=== PATIENT | male | born 1965 | race Caucasian/White ===

== ENCOUNTER 2016-07-18 07:57 | Emergency (ER) | payer BC ==
[~2016-07-18] VITALS: Ht 167.6 cm; Wt 88.5 kg
[2016-07-18 07:59] VITALS: BP 176/102; PULSE 90; RESP 20; TEMP 98; O2SAT 96
[2016-07-18 08:28] LABS: BLOOD, URINE NEG (NEG); COMMENT (UR) CULT NOT INDICATED; CULTURE IF INDICATED CULT NOT INDICATED; GLUCOSE,URINE NEG (NEG); HYALINE CAST, URINE 1 /lpf (RARE); KETONE, URINE NEG (NEG); MUCUS URINE FEW /lpf (OCC); NITRITE,URINE NEG (NEG); URINE COLOR YELLOW (YELLW/STRAW)
--- NOTE | 2016-07-18 10:41 | PD ---
HPI Chief Complaint: Complaint Time Seen by Provider: 10:37 Travel History International Travel<30 days: No Contact w/Intl Traveler<30days: No Traveled to known affect area: No History of Present Illness HPI 51-year-old male with no significant past medical issues, presents to the ER with 4 days history of lower abdominal pains, bloating, diarrhea, and pain with urination. He denies any fevers, nausea, vomiting, or any other symptoms. Pain is currently about a 4-5 out of 10. Modifying Factors: None Associated Signs & Symptoms: Lower abdominal pains, bloating, diarrhea, pain with urinating Risk Factors: None PFSH Past Medical History Diminished Hearing: No Hypertension: Yes Immunizations Current: No Tetanus Vaccination: Unknown Influenza Vaccination: No Past Surgical History Surgical History: No Previous Surgery Social History Alcohol Use: Yes (6-8 a day) Tobacco Use: Yes ("a lot") Substance Use: Yes (marijuana) Allergies-Medications (Allergen,Severity, Reaction): Coded Allergies: Tetanus Toxoid (Verified Allergy, Severe, Anaphylaxis, 07/18/16) Reported Meds & Prescriptions Reported Meds & Active Scripts Active No Active Prescriptions or Reported Medications Review of Systems Except as stated in HPI: all other systems reviewed are Neg Physical Exam Narrative GENERAL: Well-nourished, well-developed middle age male patient in no acute distress. SKIN: Warm and dry. HEAD: Normocephalic. EYES: No scleral icterus. No injection or drainage. NECK: Supple, trachea midline. CARDIOVASCULAR: Regular rate and rhythm without murmurs, gallops, or rubs. RESPIRATORY: Breath sounds equal bilaterally. No accessory muscle use. GASTROINTESTINAL: Abdomen soft, mild lower abdominal tenderness without guarding or rebound, nondistended. MUSCULOSKELETAL: No cyanosis, or edema. BACK: Nontender without obvious deformity. No CVA tenderness. Data Data Last Documented VS Vital Signs Date Time Temp Pulse Resp B/P Pulse Ox O2 Delivery O2 Flow Rate FiO2 07/18/16 07:59 98.0 90 20 176/102 96 Room Air Orders Urinalysis - C+S If Indicated (07/18/16 08:14) Complete Blood Count With Diff (07/18/16 10:38) Comprehensive Metabolic Panel (07/18/16 10:38) Ct Abd/Pel W Iv Contrast(Rout) (07/18/16 10:38) Iv Access Insert/Monitor (07/18/16 10:38) Ecg Monitoring (07/18/16 10:38) Oximetry (07/18/16 10:38) Sodium Chloride 0.9% Flush (Ns Flush) (07/18/16 10:45) Iohexol 350 Inj (Omnipaque 350 Inj) (07/18/16 12:12) Labs Laboratory Tests Test 07/18/16 07/18/16 08:18 11:00 Urine Color YELLOW Urine Turbidity CLEAR Urine pH 5.0 Urine Specific [place] 1.020 Urine Protein TRACE mg/dL Urine Glucose (UA) NEG mg/dL Urine Ketones NEG mg/dL Urine Occult Blood NEG Urine Nitrite NEG Urine Bilirubin NEG Urine Urobilinogen LESS THAN 2.0 MG/DL Urine Leukocyte Esterase TRACE Urine RBC 1 /hpf Urine WBC 1 /hpf Urine Hyaline Casts 1 /lpf Urine Mucus FEW /lpf Microscopic Urinalysis Comment CULT NOT INDICATED White Blood Count 11.5 TH/MM3 Red Blood Count 5.08 MIL/MM3 Hemoglobin 16.5 GM/DL Hematocrit 47.0 % Mean Corpuscular Volume 92.6 FL Mean Corpuscular Hemoglobin 32.5 PG Mean Corpuscular Hemoglobin 35.1 % Concent Red Cell Distribution Width 13.6 % Platelet Count 140 TH/MM3 Mean Platelet Volume 11.5 FL Neutrophils (%) (Auto) 70.9 % Lymphocytes (%) (Auto) 20.6 % Monocytes (%) (Auto) 6.1 % Eosinophils (%) (Auto) 1.4 % Basophils (%) (Auto) 1.0 % Neutrophils # (Auto) 8.2 TH/MM3 Lymphocytes # (Auto) 2.4 TH/MM3 Monocytes # (Auto) 0.7 TH/MM3 Eosinophils # (Auto) 0.2 TH/MM3 Basophils # (Auto) 0.1 TH/MM3 CBC Comment DIFF FINAL Differential Comment Sodium Level 139 MEQ/L Potassium Level 4.2 MEQ/L Chloride Level 105 MEQ/L Carbon Dioxide Level 25.7 MEQ/L Anion Gap 8 MEQ/L Blood Urea Nitrogen 12 MG/DL Creatinine 1.02 MG/DL Estimat Glomerular Filtration 77 ML/MIN Rate Random Glucose 102 MG/DL Calcium Level 8.9 MG/DL Total Bilirubin 0.6 MG/DL Aspartate Amino Transf 12 U/L (AST/SGOT) Alanine Aminotransferase 27 U/L (ALT/SGPT) Alkaline Phosphatase 76 U/L Total Protein 7.4 GM/DL Albumin 3.4 GM/DL MDM Medical Decision Making Medical Screen Exam Complete: Yes Emergency Medical Condition: Yes Medical Record Reviewed: Yes Interpretation(s) Laboratory Tests Test 07/18/16 07/18/16 08:18 11:00 Urine Leukocyte Esterase TRACE (NEG) Urine Mucus FEW /lpf (OCC) White Blood Count 11.5 TH/MM3 (4.0-11.0) Platelet Count 140 TH/MM3 (150-450) Mean Platelet Volume 11.5 FL (7.0-11.0) Neutrophils (%) (Auto) 70.9 % (16.0-70.0) Neutrophils # (Auto) 8.2 TH/MM3 (1.8-7.7) Estimat Glomerular Filtration 77 ML/MIN (>89) Rate Aspartate Amino Transf 12 U/L (15-37) (AST/SGOT) Differential Diagnosis Lower abdominal pains, pain with urination, diarrheagastroenteritis versus colitis versus diverticulitis versus UTI versus renal colic Narrative Course Lab work did not show significant metabolic issues, UTI, or significant signs of sepsis. His CAT scan shows signs of diverticulitis which is suspect is causing his current symptoms. At this point, my plan would be to release the patient with treatment for diverticulitis. Return for any worsening in symptoms as necessary. The plan has been discussed with the patient he states understanding. Diagnosis Primary Impression: Diverticulitis Med/Other Pt SpecificInfo: Prescription(s) given Scripts Metronidazole (Flagyl)500 Mg [id number] Mg PO BID 14 Days Ref 0 Prov:Ernesto Krishna MD 07/18/16 Ciprofloxacin (Cipro)500 Mg [id number] Mg PO BID 7 Days Ref 0 Prov:Ernesto Krishna MD 07/18/16 Ibuprofen (Motrin Ib)200 Mg [id number] Mg PO Q6H PRN (PAIN SCALE 1 TO 10) #21 TAB Ref 0 Prov:Ernesto Krishna MD 07/18/16 Disposition: 01 DISCHARGE HOME Condition: Stable Ernesto Krishna MD Jul 18, 2016 10:41
[2016-07-18] MEDS ORDERED: SODIUM CHLORIDE 0.9% FLUSH 5 ML FLUSH IVF PRN (10:45)
[2016-07-18 11:18] LABS: AUTOMATED NEUTROPHIL # 8.2 TH/MM3 (1.8-7.7); BASOPHIL # 0.1 TH/MM3 (0-0.2); EOSINOPHIL # 0.2 TH/MM3 (0-0.4); EOSINOPHIL % 1.4 % (0.0-4.0); HEMO FLAGS DIFF FINAL; LYMPH % 20.6 % (9.0-44.0); LYMPHOCYTE # 2.4 TH/MM3 (1.0-4.8); MEAN CELL VOLUME 92.6 FL (80.0-100.0); MEAN CORPUSCULAR HEMOGLOBIN 32.5 PG (27.0-34.0); MEAN CORPUSCULAR HGB CONC 35.1 % (32.0-36.0); MONO % 6.1 % (0.0-8.0); NEUT % 70.9 % (16.0-70.0); PLATELET COUNT 140 TH/MM3 (150-450); RED BLOOD COUNT 5.08 MIL/MM3 (4.50-5.90); RED CELL DISTRIBUTION WIDTH 13.6 % (11.6-17.2); WHITE BLOOD COUNT 11.5 TH/MM3 (4.0-11.0)
[2016-07-18 11:33] LABS: ALT (GPT) 27 U/L (12-78); ANION GAP 8 MEQ/L (5-15); AST (GOT) 12 U/L (15-37); BICARBONATE 25.7 MEQ/L (21.0-32.0); BLOOD UREA NITROGEN 12 MG/DL (7-18); CHLORIDE 105 MEQ/L (98-107); GLOMERULAR FILTRATION RATE 77 ML/MIN (>89); POTASSIUM 4.2 MEQ/L (3.5-5.1); SODIUM (NA) 139 MEQ/L (136-145)
[2016-07-18 11:35] LABS: ALKALINE PHOSPHATASE 76 U/L (45-117); TOTAL BILIRUBIN ADULT 0.6 MG/DL (0.2-1.0)
[2016-07-18] MEDS ORDERED: IOHEXOL 350 MG/ML 10 ML VIAL (for RAD DIAG) IV ONE (12:12)
--- NOTE | 2016-07-18 12:37 | RADRPT ---
EXAM DATE/TIME: 07/18/2016 12:06 [facility] COMPARISON: No previous studies available for comparison. INDICATIONS : Lower abdomen pain for three days,bloating diarrhea. IV CONTRAST: 80 cc Omnipaque 350 (iohexol) IV ORAL CONTRAST: No oral contrast ingested. RADIATION DOSE: 12.32 CTDIvol (mGy) MEDICAL HISTORY : Hypertension. SURGICAL HISTORY : None. ENCOUNTER: Initial ACUITY: 3 days PAIN SCALE: 6/10 LOCATION: Abdomen TECHNIQUE: Volumetric scanning of the abdomen and pelvis was performed. Using automated exposure control and ad justment of the mA and/or kV according to patient size, radiation dose was kept as low as reasonably achievable to obtain optimal diagnostic quality images. FINDINGS: LOWER LUNGS: Small 7 or 8 mm right middle lobe faint area of nodular opacity LIVER: Homogeneous density without lesion. There is no dilation of the biliary tree. No calcified gallston es. Gallbladder seen is a little structure without wall thickening SPLEEN: Normal size without lesion. PANCREAS: Within normal limits. KIDNEYS: Normal in size and shape. There is no mass, stone or hydronephrosis. ADRENAL GLANDS: Within normal limits. VASCULAR: There is no aortic aneurysm. BOWEL/MESENTERY: There are a few diverticuli in the proximal sigmoid colon and mid sigmoid colon demonstrates pericolo david inflammatory changes in the fat without free fluid, abscess or free air. This is most consistent with diverticulitis.. ABDOMINAL WALL: Within normal limits. RETROPERITONEUM: There is no lymphadenopathy. BLADDER: No wall thickening or mass. REPRODUCTIVE: Within normal limits. INGUINAL: There is no lymphadenopathy or hernia. MUSCULOSKELETAL: Within normal limits for patient age. CONCLUSION: A few diverticuli of the mid and proximal sigmoid colon with findings of inflammatory changes in the pericolonic fat the sigmoid colon consistent with diverticulitis without free air, free fluid or absc ess formation. Faint 7 or 8 mm area of possible nodular density righ t middle lobe requiring 6 month followup scan of the chest to observe for stability Jethro Mulligan MD on July 18, 2016 at 12:32 Board Certified Radiologist. This report was verified electronically.
[2016-07-18] MEDS ORDERED: MOTR200T4 PO (12:52)
[2016-07-18] MEDS ORDERED: CIPR-9 PO (12:52)
[2016-07-18] MEDS ORDERED: METR-1 PO (12:52)
[2016-07-18 13:41] VITALS: BP 134/75
== END 2016-07-18 13:43 | disposition home or self-care (01) ==
LOC: NEPC 07:57
DX: K57.92 Diverticulitis of intestine, part unspecified, without perforation or abscess without bleeding (principal); I10 Essential (primary) hypertension; F12.10 Cannabis abuse, uncomplicated; F10.20 Alcohol dependence, uncomplicated; F17.210 Nicotine dependence, cigarettes, uncomplicated
CPT/HCPCS: 74177; 80053; 81001; 85025; 99284; Q9967